=== PATIENT | female | born 1940 | race Caucasian/White ===

== ENCOUNTER 2020-12-27 12:33 | Inpatient (IN) ==
[2020-12-28] MEDS: Gabapentin 400 MG CAPSULE PO SCH (22:10)
[2020-12-28] MEDS: Mirtazapine 15 MG TABLET PO SCH (22:10)
[2020-12-29] MEDS: *HR* OxyCODONE/APAP 5/325 TABLET PO PRN (01:17)
[2020-12-29] MEDS: Cyanocobalamin (B-12) 1,000 MCG TABLET PO SCH (08:42)
[2020-12-29] MEDS: Multivit/Ca/Min/Fe/FA 1 TAB TABLET PO SCH (08:42)
[2020-12-29] MEDS: Cholecalciferol (D-3) 1,000 UNIT (25MCG) TABLET PO SCH (08:42)
[2020-12-29] MEDS: Metoprolol XL (24 HR) Succ 25 MG TAB.ER.24H PO SCH ×2 (08:43→20:09)
[2020-12-29] MEDS: Gabapentin 400 MG CAPSULE PO SCH ×4 (08:44→20:08)
[2020-12-29 10:27] LABS: Hematocrit 35.1 % (35.3-44.9); Hemoglobin 11.5 g/dL (11.5-15.4)
[2020-12-29] MEDS: Mirtazapine 15 MG TABLET PO SCH (20:09)
[2020-12-30] MEDS: Cyanocobalamin (B-12) 1,000 MCG TABLET PO SCH (08:05)
[2020-12-30] MEDS: Gabapentin 400 MG CAPSULE PO SCH ×4 (08:05→20:15)
[2020-12-30] MEDS: Cholecalciferol (D-3) 1,000 UNIT (25MCG) TABLET PO SCH (08:05)
[2020-12-30] MEDS: Multivit/Ca/Min/Fe/FA 1 TAB TABLET PO SCH (08:05)
[2020-12-30] MEDS: Metoprolol XL (24 HR) Succ 25 MG TAB.ER.24H PO SCH ×2 (08:06→20:15)
[2020-12-30] MEDS: Sennosides/Docusate Sodium TABLET PO SCH ×2 (09:42→20:15)
[2020-12-30] MEDS: Mirtazapine 15 MG TABLET PO SCH (20:15)
[2020-12-31] MEDS: Acetaminophen 325 MG TABLET PO PRN (05:51)
[2020-12-31] MEDS: Sennosides/Docusate Sodium TABLET PO SCH ×2 (08:17→19:46)
[2020-12-31] MEDS: Metoprolol XL (24 HR) Succ 25 MG TAB.ER.24H PO SCH ×2 (08:18→19:46)
[2020-12-31] MEDS: Gabapentin 400 MG CAPSULE PO SCH ×4 (08:19→19:46)
[2020-12-31] MEDS: Multivit/Ca/Min/Fe/FA 1 TAB TABLET PO SCH (08:19)
[2020-12-31] MEDS: Cyanocobalamin (B-12) 1,000 MCG TABLET PO SCH (08:20)
[2020-12-31] MEDS: Cholecalciferol (D-3) 1,000 UNIT (25MCG) TABLET PO SCH (08:20)
[2020-12-31] MEDS: Mirtazapine 15 MG TABLET PO SCH (19:47)
[2021-01-01] MEDS: Cholecalciferol (D-3) 1,000 UNIT (25MCG) TABLET PO SCH (10:09)
[2021-01-01] MEDS: Gabapentin 400 MG CAPSULE PO SCH ×4 (10:10→20:10)
[2021-01-01] MEDS: Cyanocobalamin (B-12) 1,000 MCG TABLET PO SCH (10:10)
[2021-01-01] MEDS: Multivit/Ca/Min/Fe/FA 1 TAB TABLET PO SCH (10:10)
[2021-01-01] MEDS: Metoprolol XL (24 HR) Succ 25 MG TAB.ER.24H PO SCH ×2 (10:10→20:09)
[2021-01-01] MEDS: Sennosides/Docusate Sodium TABLET PO SCH ×2 (10:11→20:09)
[2021-01-01] MEDS: Mirtazapine 15 MG TABLET PO SCH (20:09)
[2021-01-02] MEDS: Acetaminophen 325 MG TABLET PO PRN
[2021-01-02] MEDS: Metoprolol XL (24 HR) Succ 25 MG TAB.ER.24H PO SCH ×2 (08:38→20:13)
[2021-01-02] MEDS: Multivit/Ca/Min/Fe/FA 1 TAB TABLET PO SCH (08:38)
[2021-01-02] MEDS: Sennosides/Docusate Sodium TABLET PO SCH ×2 (08:38→20:13)
[2021-01-02] MEDS: Cyanocobalamin (B-12) 1,000 MCG TABLET PO SCH (08:38)
[2021-01-02] MEDS: Cholecalciferol (D-3) 1,000 UNIT (25MCG) TABLET PO SCH (08:38)
[2021-01-02] MEDS: Gabapentin 400 MG CAPSULE PO SCH ×4 (08:38→20:13)
[2021-01-02] MEDS: Mirtazapine 15 MG TABLET PO SCH (20:13)
[2021-01-02] MEDS: *HR* OxyCODONE/APAP 5/325 TABLET PO PRN (20:14)
[2021-01-03] MEDS: Gabapentin 400 MG CAPSULE PO SCH ×4 (08:48→20:17)
[2021-01-03] MEDS: Metoprolol XL (24 HR) Succ 25 MG TAB.ER.24H PO SCH ×2 (08:48→20:18)
[2021-01-03] MEDS: Cholecalciferol (D-3) 1,000 UNIT (25MCG) TABLET PO SCH (08:48)
[2021-01-03] MEDS: Cyanocobalamin (B-12) 1,000 MCG TABLET PO SCH (08:48)
[2021-01-03] MEDS: Multivit/Ca/Min/Fe/FA 1 TAB TABLET PO SCH (08:48)
[2021-01-03] MEDS: Sennosides/Docusate Sodium TABLET PO SCH ×2 (08:49→20:16)
[2021-01-03] MEDS: *HR* OxyCODONE/APAP 5/325 TABLET PO PRN (20:17)
[2021-01-03] MEDS: Mirtazapine 15 MG TABLET PO SCH (20:17)
[2021-01-04] MEDS: *HR* OxyCODONE/APAP 5/325 TABLET PO PRN ×2 (03:29→22:35)
[2021-01-04 07:16] LABS: Basophils # 0.1 K/mcL (0.0-0.2); Basophils % 0.6 %; Eosinophils # 0.2 K/mcL (0.0-0.6); Hematocrit 30.5 % (35.3-44.9); Hemoglobin 9.9 g/dL (11.5-15.4); Immature Granulocytes % 0.8 % (0-4); Lymphocytes # 1.7 K/mcL (0.6-4.6); Lymphocytes % 18.9 %; Mean Corpuscular HGB Conc 32.5 g/dL (31.6-35.5); Mean Corpuscular Hemoglobin 29.5 pg (28.0-33.3); Mean Corpuscular Volume 90.8 fL (83.0-100.0); Mean Platelet Volume 8.4 fL (9.4-12.4); Monocytes # 0.9 K/mcL (0.0-1.3); Platelet Count 505 K/mcL (140-400); Red Blood Count 3.36 M/mcL (3.82-4.97); Red Cell Distribution Width 12.2 % (11.5-14.5); Segmented Neutrophils % 67.7 %; White Blood Count 8.8 K/mcL (4.3-11.1)
[2021-01-04 07:31] LABS: BUN/Creatinine Ratio 28 (6-26); Blood Urea Nitrogen 22 mg/dL (8-23); Calcium 8.7 mg/dL (8.6-10.3); Carbon Dioxide 31 mEq/L (23-29); Chloride 98 mEq/L (98-107); Glucose 88 mg/dL (70-105); Osmolality,Calculated 281 (280-300); Potassium 4.1 mEq/L (3.5-5.1); Sodium 134 mEq/L (136-145); eGFR For African Americans > 60 (> 60); eGFR For Non-African Americans > 60 (> 60)
[2021-01-04] MEDS: Metoprolol XL (24 HR) Succ 25 MG TAB.ER.24H PO SCH ×2 (08:11→20:16)
[2021-01-04] MEDS: Cholecalciferol (D-3) 1,000 UNIT (25MCG) TABLET PO SCH (08:11)
[2021-01-04] MEDS: Multivit/Ca/Min/Fe/FA 1 TAB TABLET PO SCH (08:11)
[2021-01-04] MEDS: Sennosides/Docusate Sodium TABLET PO SCH ×2 (08:11→20:16)
[2021-01-04] MEDS: Cyanocobalamin (B-12) 1,000 MCG TABLET PO SCH (08:11)
[2021-01-04] MEDS: Gabapentin 400 MG CAPSULE PO SCH ×4 (08:11→20:16)
[2021-01-04] MEDS: Mirtazapine 15 MG TABLET PO SCH (20:16)
[2021-01-05] MEDS: Cyanocobalamin (B-12) 1,000 MCG TABLET PO SCH (08:31)
[2021-01-05] MEDS: Multivit/Ca/Min/Fe/FA 1 TAB TABLET PO SCH (08:31)
[2021-01-05] MEDS: Gabapentin 400 MG CAPSULE PO SCH ×4 (08:31→21:04)
[2021-01-05] MEDS: Metoprolol XL (24 HR) Succ 25 MG TAB.ER.24H PO SCH ×2 (08:31→21:04)
[2021-01-05] MEDS: Cholecalciferol (D-3) 1,000 UNIT (25MCG) TABLET PO SCH (08:31)
[2021-01-05] MEDS: Sennosides/Docusate Sodium TABLET PO SCH (08:31)
[2021-01-05] MEDS: Acetaminophen 325 MG TABLET PO PRN (09:59)
[2021-01-05] MEDS: Mirtazapine 15 MG TABLET PO SCH (21:04)
[2021-01-06] MEDS: Acetaminophen 325 MG TABLET PO PRN (04:19)
[2021-01-06] MEDS: Multivit/Ca/Min/Fe/FA 1 TAB TABLET PO SCH (08:54)
[2021-01-06] MEDS: Gabapentin 400 MG CAPSULE PO SCH ×4 (08:54→20:50)
[2021-01-06] MEDS: Cyanocobalamin (B-12) 1,000 MCG TABLET PO SCH (08:54)
[2021-01-06] MEDS: Metoprolol XL (24 HR) Succ 25 MG TAB.ER.24H PO SCH ×2 (08:54→20:50)
[2021-01-06] MEDS: Cholecalciferol (D-3) 1,000 UNIT (25MCG) TABLET PO SCH (08:54)
[2021-01-06 09:09] LABS: Basophils # 0.1 K/mcL (0.0-0.2); Basophils % 0.6 %; Eosinophils # 0.2 K/mcL (0.0-0.6); Eosinophils % 2.2 %; Hematocrit 28.6 % (35.3-44.9); Hemoglobin 9.4 g/dL (11.5-15.4); Immature Granulocytes % 0.7 % (0-4); Lymphocytes # 1.6 K/mcL (0.6-4.6); Lymphocytes % 17.5 %; Mean Corpuscular HGB Conc 32.9 g/dL (31.6-35.5); Mean Corpuscular Hemoglobin 29.7 pg (28.0-33.3); Mean Corpuscular Volume 90.5 fL (83.0-100.0); Mean Platelet Volume 8.5 fL (9.4-12.4); Monocytes # 0.8 K/mcL (0.0-1.3); Monocytes % 8.7 %; Neutrophils # 6.3 K/mcL (1.6-8.9); Platelet Count 553 K/mcL (140-400); Red Blood Count 3.16 M/mcL (3.82-4.97); Red Cell Distribution Width 12.2 % (11.5-14.5); Segmented Neutrophils % 70.3 %
[2021-01-06] MEDS: Mirtazapine 15 MG TABLET PO SCH (20:49)
[2021-01-07] MEDS: Multivit/Ca/Min/Fe/FA 1 TAB TABLET PO SCH (08:09)
[2021-01-07] MEDS: Cholecalciferol (D-3) 1,000 UNIT (25MCG) TABLET PO SCH (08:09)
[2021-01-07] MEDS: Gabapentin 400 MG CAPSULE PO SCH ×4 (08:09→20:06)
[2021-01-07] MEDS: Cyanocobalamin (B-12) 1,000 MCG TABLET PO SCH (08:09)
[2021-01-07] MEDS: Metoprolol XL (24 HR) Succ 25 MG TAB.ER.24H PO SCH ×2 (08:09→20:06)
[2021-01-07] MEDS: Mirtazapine 15 MG TABLET PO SCH (20:06)
[2021-01-08] MEDS: tiZANidine 4 MG TABLET PO PRN (00:40)
[2021-01-08] MEDS: *HR* OxyCODONE/APAP 5/325 TABLET PO PRN (00:40)
[2021-01-08 07:15] LABS: Basophils # 0.1 K/mcL (0.0-0.2); Basophils % 0.6 %; Eosinophils # 0.2 K/mcL (0.0-0.6); Eosinophils % 2.6 %; Hematocrit 31.5 % (35.3-44.9); Hemoglobin 10.7 g/dL (11.5-15.4); Immature Granulocytes % 0.5 % (0-4); Lymphocytes # 1.6 K/mcL (0.6-4.6); Lymphocytes % 19.9 %; Mean Corpuscular Hemoglobin 30.8 pg (28.0-33.3); Mean Corpuscular Volume 90.8 fL (83.0-100.0); Mean Platelet Volume 8.4 fL (9.4-12.4); Monocytes # 0.9 K/mcL (0.0-1.3); Monocytes % 10.4 %; Neutrophils # 5.4 K/mcL (1.6-8.9); Platelet Count 583 K/mcL (140-400); Red Blood Count 3.47 M/mcL (3.82-4.97); Red Cell Distribution Width 12.5 % (11.5-14.5); White Blood Count 8.2 K/mcL (4.3-11.1)
[2021-01-08 07:25] LABS: BUN/Creatinine Ratio 20 (6-26); Blood Urea Nitrogen 16 mg/dL (8-23); Calcium 8.9 mg/dL (8.6-10.3); Carbon Dioxide 32 mEq/L (23-29); Chloride 98 mEq/L (98-107); Glucose 81 mg/dL (70-105); Osmolality,Calculated 278 (280-300); Potassium 4.4 mEq/L (3.5-5.1); Sodium 134 mEq/L (136-145); eGFR For African Americans > 60 (> 60); eGFR For Non-African Americans > 60 (> 60)
[2021-01-08] MEDS: Cyanocobalamin (B-12) 1,000 MCG TABLET PO SCH (09:16)
[2021-01-08] MEDS: Gabapentin 400 MG CAPSULE PO SCH ×4 (09:16→20:54)
[2021-01-08] MEDS: Multivit/Ca/Min/Fe/FA 1 TAB TABLET PO SCH (09:16)
[2021-01-08] MEDS: Metoprolol XL (24 HR) Succ 25 MG TAB.ER.24H PO SCH ×2 (09:17→20:54)
[2021-01-08] MEDS: Cholecalciferol (D-3) 1,000 UNIT (25MCG) TABLET PO SCH (09:17)
[2021-01-08 09:25] LABS: % Iron Saturation 11 % (15-50); Iron 34 mcg/dL (50-170); Transferrin 220 mg/dL (203-362)
[2021-01-08 09:50] LABS: Folate 20.9 ng/mL (3.0-16.0)
[2021-01-08] MEDS: Mirtazapine 15 MG TABLET PO SCH (20:54)
[2021-01-09] MEDS: *HR* OxyCODONE/APAP 5/325 TABLET PO PRN ×3 (02:37→17:16)
[2021-01-09] MEDS: Cholecalciferol (D-3) 1,000 UNIT (25MCG) TABLET PO SCH (10:25)
[2021-01-09] MEDS: Cyanocobalamin (B-12) 1,000 MCG TABLET PO SCH (10:25)
[2021-01-09] MEDS: Metoprolol XL (24 HR) Succ 25 MG TAB.ER.24H PO SCH ×2 (10:25→21:35)
[2021-01-09] MEDS: Gabapentin 400 MG CAPSULE PO SCH ×4 (10:26→21:34)
[2021-01-09] MEDS: Multivit/Ca/Min/Fe/FA 1 TAB TABLET PO SCH (10:26)
[2021-01-09] MEDS: Mirtazapine 15 MG TABLET PO SCH (21:34)
[2021-01-09] MEDS: tiZANidine 4 MG TABLET PO PRN (21:34)
[2021-01-10] MEDS: *HR* OxyCODONE/APAP 5/325 TABLET PO PRN ×2 (01:22→09:18)
[2021-01-10] MEDS: Cholecalciferol (D-3) 1,000 UNIT (25MCG) TABLET PO SCH (09:19)
[2021-01-10] MEDS: Multivit/Ca/Min/Fe/FA 1 TAB TABLET PO SCH (09:19)
[2021-01-10] MEDS: Metoprolol XL (24 HR) Succ 25 MG TAB.ER.24H PO SCH ×2 (09:19→20:38)
[2021-01-10] MEDS: Cyanocobalamin (B-12) 1,000 MCG TABLET PO SCH (09:19)
[2021-01-10] MEDS: Gabapentin 400 MG CAPSULE PO SCH ×4 (09:20→20:36)
[2021-01-10] MEDS: *HR* Heparin 5,000 UNIT/ML VIAL SQ SCH (17:51)
[2021-01-10] MEDS: Acetaminophen 325 MG TABLET PO PRN (20:36)
[2021-01-10] MEDS: Mirtazapine 15 MG TABLET PO SCH (20:37)
[2021-01-11] MEDS: *HR* Heparin 5,000 UNIT/ML VIAL SQ SCH ×2 (06:43→17:14)
[2021-01-11 07:06] LABS: Basophils % 0.7 %; Eosinophils # 0.1 K/mcL (0.0-0.6); Eosinophils % 2.2 %; Hematocrit 33.9 % (35.3-44.9); Immature Granulocytes % 0.3 % (0-4); Lymphocytes # 1.6 K/mcL (0.6-4.6); Lymphocytes % 27.4 %; Mean Corpuscular HGB Conc 32.4 g/dL (31.6-35.5); Mean Corpuscular Hemoglobin 29.6 pg (28.0-33.3); Mean Corpuscular Volume 91.4 fL (83.0-100.0); Mean Platelet Volume 8.2 fL (9.4-12.4); Monocytes # 0.6 K/mcL (0.0-1.3); Monocytes % 9.9 %; Neutrophils # 3.5 K/mcL (1.6-8.9); Platelet Count 588 K/mcL (140-400); Red Blood Count 3.71 M/mcL (3.82-4.97); Red Cell Distribution Width 12.6 % (11.5-14.5); Segmented Neutrophils % 59.5 %; White Blood Count 5.9 K/mcL (4.3-11.1)
[2021-01-11] MEDS: Gabapentin 400 MG CAPSULE PO SCH ×4 (10:25→20:31)
[2021-01-11] MEDS: Cyanocobalamin (B-12) 1,000 MCG TABLET PO SCH (10:25)
[2021-01-11] MEDS: Multivit/Ca/Min/Fe/FA 1 TAB TABLET PO SCH (10:25)
[2021-01-11] MEDS: Cholecalciferol (D-3) 1,000 UNIT (25MCG) TABLET PO SCH (10:25)
[2021-01-11] MEDS: Metoprolol XL (24 HR) Succ 25 MG TAB.ER.24H PO SCH ×2 (10:25→20:32)
[2021-01-11] MEDS: Mirtazapine 15 MG TABLET PO SCH (20:31)
[2021-01-12] MEDS: *HR* Heparin 5,000 UNIT/ML VIAL SQ SCH ×2 (06:21→17:54)
[2021-01-12] MEDS: Metoprolol XL (24 HR) Succ 25 MG TAB.ER.24H PO SCH ×2 (10:10→20:04)
[2021-01-12] MEDS: Multivit/Ca/Min/Fe/FA 1 TAB TABLET PO SCH (10:10)
[2021-01-12] MEDS: Cholecalciferol (D-3) 1,000 UNIT (25MCG) TABLET PO SCH (10:10)
[2021-01-12] MEDS: Cyanocobalamin (B-12) 1,000 MCG TABLET PO SCH (10:10)
[2021-01-12] MEDS: Gabapentin 400 MG CAPSULE PO SCH ×4 (10:11→20:04)
[2021-01-12 19:59] VITALS: BP 118/69
[2021-01-12] MEDS: Mirtazapine 15 MG TABLET PO SCH (20:05)
== END 2021-01-12 20:15 | disposition home health service (06) | DRG 561 ==
LOC: INPPIK 12-28 19:24
PROVIDERS: ADMIT Family Medicine; ATTEND Family Medicine

== ENCOUNTER 2021-12-24 13:16 | Observation (INO) ==
[2021-12-24] MEDS ORDERED: Ondansetron 4 MG/2 ML VIAL IVP ONE (14:11)
[2021-12-24] MEDS ORDERED: 0.9 % Sodium Chloride 1,000 ML IVC ONE (14:11)
[2021-12-24 14:54] LABS: Basophils % 0.4 %; Hematocrit 40.1 % (35.3-44.9); Hemoglobin 13.3 g/dL (11.5-15.4); Immature Granulocytes % 0.4 % (0-4); Lymphocytes # 0.3 K/mcL (0.6-4.6); Lymphocytes % 3.3 %; Mean Corpuscular HGB Conc 33.2 g/dL (31.6-35.5); Mean Corpuscular Hemoglobin 30.4 pg (28.0-33.3); Mean Corpuscular Volume 91.8 fL (83.0-100.0); Mean Platelet Volume 9.2 fL (9.4-12.4); Monocytes # 0.5 K/mcL (0.0-1.3); Monocytes % 6.1 %; Neutrophils # 7.2 K/mcL (1.6-8.9); Platelet Count 272 K/mcL (140-400); Red Blood Count 4.37 M/mcL (3.82-4.97); Red Cell Distribution Width 12.3 % (11.5-14.5); Segmented Neutrophils % 89.8 %
[2021-12-24 15:12] LABS: Albumin 3.9 g/dL (3.5-5.7); Albumin/Globulin Ratio 1.3 (1.1-2.2); Bilirubin,Direct 0.1 mg/dL (0.0-0.2); Bilirubin,Indirect 0.2 mg/dL (0.0-1.0); Bilirubin,Total 0.3 mg/dL (0.3-1.0); Calcium 9.3 mg/dL (8.6-10.3); Potassium 4.1 mEq/L (3.5-5.1); Total Protein 6.9 g/dL (6.4-8.9)
[2021-12-24 15:17] LABS: Bilirubin,Urine Negative (Negative); Blood,Urine Negative (Negative); Clarity,Urine Clear (Clear); Color,Urine Yellow (Yellow); Glucose,Urine (UA) Normal (Normal); Ketones,Urine Trace mg/dL (Negative); Leukocyte Esterase,Urine Negative (Negative); Nitrite,Urine Negative (Negative); PH,Urine 5.5 pH Units (5.0-8.0); Protein,Urine 30 mg/dL (Neg-Trace); Specific Gravity,Urine 1.025 (1.010-1.025); Urobilinogen,Urine Normal (Normal)
[2021-12-24 15:28] LABS: Hyaline Casts,Urine Few per lpf (None Seen); WBC,Urine 0-3 per hpf (0-3)
[2021-12-24] MEDS ORDERED: Acetaminophen 325 MG TABLET PO PRN (17:15)
[2021-12-24] MEDS ORDERED: Ondansetron 4 MG/2 ML VIAL IVP PRN (17:15)
[2021-12-24] MEDS ORDERED: MOM Conc 10 ML UD.LIQ PO PRN (17:15)
[2021-12-24] MEDS ORDERED: Naloxone 0.4 MG/ML INJ IVP PRN (17:15)
[2021-12-24] MEDS ORDERED: Mag Hydrox/Al Hydrox/Simeth 30 ML UDC PO PRN (17:15)
[2021-12-24] MEDS: 0.9 % Sodium Chloride 1,000 ML IVC SCH (20:20)
[2021-12-24] MEDS: *HR* Heparin 5,000 UNIT/ML VIAL SQ SCH (20:22)
[2021-12-24] MEDS: Gabapentin 400 MG CAPSULE PO SCH (20:27)
[2021-12-25] MEDS: *HR* Heparin 5,000 UNIT/ML VIAL SQ SCH ×2 (06:15→17:13)
[2021-12-25 08:20] LABS: Hematocrit 36.9 % (35.3-44.9); Hemoglobin 12.3 g/dL (11.5-15.4); Mean Corpuscular HGB Conc 33.3 g/dL (31.6-35.5); Mean Corpuscular Hemoglobin 30.1 pg (28.0-33.3); Mean Corpuscular Volume 90.2 fL (83.0-100.0); Mean Platelet Volume 9.4 fL (9.4-12.4); Platelet Count 257 K/mcL (140-400); Red Blood Count 4.09 M/mcL (3.82-4.97); White Blood Count 7.5 K/mcL (4.3-11.1)
[2021-12-25 08:42] LABS: BUN/Creatinine Ratio 33 (6-26); Blood Urea Nitrogen 33 mg/dL (8-23); Calcium 8.3 mg/dL (8.6-10.3); Carbon Dioxide 22 mEq/L (23-29); Chloride 104 mEq/L (98-107); Glucose 96 mg/dL (70-105); Osmolality,Calculated 287 (280-300); Potassium 3.2 mEq/L (3.5-5.1); Sodium 135 mEq/L (136-145); eGFR For African Americans > 60 (> 60); eGFR For Non-African Americans 52 (> 60)
[2021-12-25] MEDS: Gabapentin 400 MG CAPSULE PO SCH ×4 (09:13→21:40)
[2021-12-25] MEDS: Multivit/Ca/Min/Fe/FA 1 TAB TABLET PO SCH (09:13)
[2021-12-25] MEDS: GALANTAMINE HBR 8 MG PO SCH (09:16)
[2021-12-25] MEDS: 0.9 % Sodium Chloride 1,000 ML IVC SCH ×2 (12:47→21:41)
[2021-12-25] MEDS: Mirtazapine 15 MG TABLET PO SCH (21:40)
[2021-12-26] MEDS: 0.9 % Sodium Chloride 1,000 ML IVC SCH ×2 (04:30→12:00)
[2021-12-26] MEDS: *HR* Heparin 5,000 UNIT/ML VIAL SQ SCH ×2 (05:20→17:06)
[2021-12-26 07:40] LABS: Hematocrit 36.8 % (35.3-44.9); Hemoglobin 12.6 g/dL (11.5-15.4); Mean Corpuscular HGB Conc 34.2 g/dL (31.6-35.5); Mean Corpuscular Hemoglobin 30.2 pg (28.0-33.3); Mean Corpuscular Volume 88.2 fL (83.0-100.0); Mean Platelet Volume 10.1 fL (9.4-12.4); Platelet Count 268 K/mcL (140-400); Red Blood Count 4.17 M/mcL (3.82-4.97); Red Cell Distribution Width 11.9 % (11.5-14.5); White Blood Count 8.5 K/mcL (4.3-11.1)
[2021-12-26 08:21] LABS: BUN/Creatinine Ratio 27 (6-26); Blood Urea Nitrogen 20 mg/dL (8-23); Calcium 8.4 mg/dL (8.6-10.3); Carbon Dioxide 25 mEq/L (23-29); Chloride 105 mEq/L (98-107); Glucose 96 mg/dL (70-105); Osmolality,Calculated 288 (280-300); Potassium 3.2 mEq/L (3.5-5.1); Sodium 138 mEq/L (136-145); eGFR For African Americans > 60 (> 60); eGFR For Non-African Americans > 60 (> 60)
[2021-12-26] MEDS: Multivit/Ca/Min/Fe/FA 1 TAB TABLET PO SCH (10:04)
[2021-12-26] MEDS: Gabapentin 400 MG CAPSULE PO SCH ×4 (10:04→21:25)
[2021-12-26] MEDS: GALANTAMINE HBR 8 MG PO SCH (10:05)
[2021-12-26] MEDS: Mirtazapine 15 MG TABLET PO SCH (21:25)
[2021-12-27] MEDS: 0.9 % Sodium Chloride 1,000 ML IVC SCH ×2 (01:18→12:58)
[2021-12-27] MEDS: *HR* Heparin 5,000 UNIT/ML VIAL SQ SCH ×2 (06:53→20:05)
[2021-12-27] MEDS: Multivit/Ca/Min/Fe/FA 1 TAB TABLET PO SCH (08:27)
[2021-12-27] MEDS: Gabapentin 400 MG CAPSULE PO SCH ×3 (08:28→20:01)
[2021-12-27] MEDS: GALANTAMINE HBR 8 MG PO SCH (08:28)
[2021-12-27 08:45] LABS: BUN/Creatinine Ratio 19 (6-26); Blood Urea Nitrogen 14 mg/dL (8-23); Calcium 8.4 mg/dL (8.6-10.3); Carbon Dioxide 23 mEq/L (23-29); Chloride 108 mEq/L (98-107); Glucose 93 mg/dL (70-105); Magnesium 1.6 mg/dL (1.6-2.6); Osmolality,Calculated 286 (280-300); Potassium 3.4 mEq/L (3.5-5.1); Sodium 138 mEq/L (136-145); eGFR For African Americans > 60 (> 60); eGFR For Non-African Americans > 60 (> 60)
[2021-12-27] MEDS: Mirtazapine 15 MG TABLET PO SCH (20:00)
[2021-12-28] MEDS: 0.9 % Sodium Chloride 1,000 ML IVC SCH ×4 (02:04→12:50)
[2021-12-28] MEDS: *HR* Heparin 5,000 UNIT/ML VIAL SQ SCH (06:23)
[2021-12-28] MEDS: GALANTAMINE HBR 8 MG PO SCH (10:03)
[2021-12-28] MEDS: Multivit/Ca/Min/Fe/FA 1 TAB TABLET PO SCH (10:03)
[2021-12-28] MEDS: Gabapentin 400 MG CAPSULE PO SCH ×2 (10:03→12:49)
[2021-12-28 11:18] VITALS: BP 167/74; PULSE 82; RESP 16; TEMP 98.2; O2SAT 96
== END 2021-12-28 15:05 | disposition other institution (70) ==
LOC: INPPIK 13:16 → EMEROOPIK 13:16 → INPPIK 17:27
PROVIDERS: ADMIT Registered Nurse Emergency; ATTEND Registered Nurse Emergency

== ENCOUNTER 2021-12-27 17:43 | Inpatient (IN) ==
[2021-12-28] MEDS ORDERED: Acetaminophen 325 MG TABLET PO PRN (15:39)
[2021-12-28] MEDS: Gabapentin 400 MG CAPSULE PO SCH ×2 (17:34→23:12)
[2021-12-28] MEDS: *HR* Heparin 5,000 UNIT/ML VIAL SQ SCH (17:34)
[2021-12-28] MEDS: Mirtazapine 15 MG TABLET PO SCH (23:11)
[2021-12-29 06:36] LABS: Basophils % 0.4 %; Eosinophils # 0.1 K/mcL (0.0-0.6); Eosinophils % 1.1 %; Hematocrit 33.6 % (35.3-44.9); Hemoglobin 11.4 g/dL (11.5-15.4); Immature Granulocytes % 0.3 % (0-4); Lymphocytes # 1.8 K/mcL (0.6-4.6); Lymphocytes % 21.9 %; Mean Corpuscular HGB Conc 33.9 g/dL (31.6-35.5); Mean Corpuscular Hemoglobin 30.3 pg (28.0-33.3); Mean Corpuscular Volume 89.4 fL (83.0-100.0); Mean Platelet Volume 9.7 fL (9.4-12.4); Monocytes # 0.9 K/mcL (0.0-1.3); Monocytes % 11.8 %; Neutrophils # 5.2 K/mcL (1.6-8.9); Platelet Count 267 K/mcL (140-400); Red Blood Count 3.76 M/mcL (3.82-4.97); Red Cell Distribution Width 12.3 % (11.5-14.5); Segmented Neutrophils % 64.5 %
[2021-12-29] MEDS: *HR* Heparin 5,000 UNIT/ML VIAL SQ SCH ×2 (06:52→17:31)
[2021-12-29 07:05] LABS: BUN/Creatinine Ratio 17 (6-26); Blood Urea Nitrogen 13 mg/dL (8-23); Calcium 8.5 mg/dL (8.6-10.3); Carbon Dioxide 27 mEq/L (23-29); Chloride 107 mEq/L (98-107); Glucose 99 mg/dL (70-105); Osmolality,Calculated 290 (280-300); Sodium 140 mEq/L (136-145); eGFR For African Americans > 60 (> 60); eGFR For Non-African Americans > 60 (> 60)
[2021-12-29] MEDS: GALANTAMINE HBR 8 MG PO SCH (07:51)
[2021-12-29] MEDS: Gabapentin 400 MG CAPSULE PO SCH ×4 (07:51→19:38)
[2021-12-29] MEDS: Multivit/Ca/Min/Fe/FA 1 TAB TABLET PO SCH (08:30)
[2021-12-29] MEDS: Cyanocobalamin (B-12) 1,000 MCG TABLET PO SCH (08:30)
[2021-12-29] MEDS: lisinopriL 20 MG TABLET PO SCH (08:30)
[2021-12-29] MEDS: (Mirabegron [Myrbetriq] 25 MG Tab.Er.24h) PO SCH (08:31)
[2021-12-29] MEDS: Cholecalciferol (D-3) 1,000 UNIT (25MCG) TABLET PO SCH (08:31)
[2021-12-29] MEDS ORDERED: hydrALAZINE 25 MG TABLET PO PRN (12:27)
[2021-12-29] MEDS: Mirtazapine 15 MG TABLET PO SCH (19:38)
[2021-12-30] MEDS: *HR* Heparin 5,000 UNIT/ML VIAL SQ SCH ×2 (06:34→18:27)
[2021-12-30] MEDS: Gabapentin 400 MG CAPSULE PO SCH ×4 (10:58→20:54)
[2021-12-30] MEDS: Cholecalciferol (D-3) 1,000 UNIT (25MCG) TABLET PO SCH (10:58)
[2021-12-30] MEDS: lisinopriL 20 MG TABLET PO SCH (10:58)
[2021-12-30] MEDS: Cyanocobalamin (B-12) 1,000 MCG TABLET PO SCH (10:58)
[2021-12-30] MEDS: Multivit/Ca/Min/Fe/FA 1 TAB TABLET PO SCH (10:58)
[2021-12-30] MEDS: (Mirabegron [Myrbetriq] 25 MG Tab.Er.24h) PO SCH (11:02)
[2021-12-30] MEDS: GALANTAMINE HBR 8 MG PO SCH (11:02)
[2021-12-30] MEDS: Mirtazapine 15 MG TABLET PO SCH (20:54)
[2021-12-31] MEDS: *HR* Heparin 5,000 UNIT/ML VIAL SQ SCH ×2 (05:55→17:14)
[2021-12-31] MEDS: Cholecalciferol (D-3) 1,000 UNIT (25MCG) TABLET PO SCH (07:17)
[2021-12-31] MEDS: lisinopriL 20 MG TABLET PO SCH (07:17)
[2021-12-31] MEDS: (Mirabegron [Myrbetriq] 25 MG Tab.Er.24h) PO SCH (07:17)
[2021-12-31] MEDS: Cyanocobalamin (B-12) 1,000 MCG TABLET PO SCH (07:17)
[2021-12-31] MEDS: GALANTAMINE HBR 8 MG PO SCH (07:17)
[2021-12-31] MEDS: Gabapentin 400 MG CAPSULE PO SCH ×4 (07:17→19:54)
[2021-12-31] MEDS: Multivit/Ca/Min/Fe/FA 1 TAB TABLET PO SCH (07:17)
[2021-12-31] MEDS: Mirtazapine 15 MG TABLET PO SCH (19:54)
[2022-01-01] MEDS: *HR* Heparin 5,000 UNIT/ML VIAL SQ SCH ×2 (05:10→17:34)
[2022-01-01] MEDS: Cholecalciferol (D-3) 1,000 UNIT (25MCG) TABLET PO SCH (08:19)
[2022-01-01] MEDS: Gabapentin 400 MG CAPSULE PO SCH ×4 (08:19→20:16)
[2022-01-01] MEDS: Cyanocobalamin (B-12) 1,000 MCG TABLET PO SCH (08:19)
[2022-01-01] MEDS: lisinopriL 20 MG TABLET PO SCH (08:19)
[2022-01-01] MEDS: Multivit/Ca/Min/Fe/FA 1 TAB TABLET PO SCH (08:19)
[2022-01-01] MEDS: (Mirabegron [Myrbetriq] 25 MG Tab.Er.24h) PO SCH (08:20)
[2022-01-01] MEDS: GALANTAMINE HBR 8 MG PO SCH (08:20)
[2022-01-01] MEDS: Mirtazapine 15 MG TABLET PO SCH (20:16)
[2022-01-02] MEDS: *HR* Heparin 5,000 UNIT/ML VIAL SQ SCH ×2 (05:41→17:09)
[2022-01-02] MEDS: (Mirabegron [Myrbetriq] 25 MG Tab.Er.24h) PO SCH (12:17)
[2022-01-02] MEDS: GALANTAMINE HBR 8 MG PO SCH (12:17)
[2022-01-02] MEDS: Gabapentin 400 MG CAPSULE PO SCH ×4 (12:17→22:04)
[2022-01-02] MEDS: Multivit/Ca/Min/Fe/FA 1 TAB TABLET PO SCH (12:58)
[2022-01-02] MEDS: Cholecalciferol (D-3) 1,000 UNIT (25MCG) TABLET PO SCH (12:58)
[2022-01-02] MEDS: lisinopriL 20 MG TABLET PO SCH (12:58)
[2022-01-02] MEDS: Cyanocobalamin (B-12) 1,000 MCG TABLET PO SCH (12:58)
[2022-01-02] MEDS: Mirtazapine 15 MG TABLET PO SCH (22:04)
[2022-01-03] MEDS: *HR* Heparin 5,000 UNIT/ML VIAL SQ SCH ×2 (06:21→16:59)
[2022-01-03 08:37] LABS: Hematocrit 33.2 % (35.3-44.9); Hemoglobin 10.8 g/dL (11.5-15.4); Mean Corpuscular HGB Conc 32.5 g/dL (31.6-35.5); Mean Corpuscular Hemoglobin 30.3 pg (28.0-33.3); Platelet Count 392 K/mcL (140-400); Red Blood Count 3.57 M/mcL (3.82-4.97); Red Cell Distribution Width 12.2 % (11.5-14.5); White Blood Count 10.2 K/mcL (4.3-11.1)
[2022-01-03 08:46] LABS: BUN/Creatinine Ratio 23 (6-26); Blood Urea Nitrogen 23 mg/dL (8-23); Carbon Dioxide 33 mEq/L (23-29); Chloride 101 mEq/L (98-107); Glucose 91 mg/dL (70-105); Osmolality,Calculated 289 (280-300); Potassium 4.3 mEq/L (3.5-5.1); Sodium 138 mEq/L (136-145); eGFR For African Americans > 60 (> 60); eGFR For Non-African Americans 52 (> 60)
[2022-01-03] MEDS: (Mirabegron [Myrbetriq] 25 MG Tab.Er.24h) PO SCH (10:18)
[2022-01-03] MEDS: GALANTAMINE HBR 8 MG PO SCH (10:18)
[2022-01-03] MEDS: lisinopriL 20 MG TABLET PO SCH (10:21)
[2022-01-03] MEDS: Multivit/Ca/Min/Fe/FA 1 TAB TABLET PO SCH (10:21)
[2022-01-03] MEDS: Cholecalciferol (D-3) 1,000 UNIT (25MCG) TABLET PO SCH (10:21)
[2022-01-03] MEDS: Cyanocobalamin (B-12) 1,000 MCG TABLET PO SCH (10:21)
[2022-01-03] MEDS: Gabapentin 400 MG CAPSULE PO SCH ×4 (10:21→21:22)
[2022-01-03] MEDS: Mirtazapine 15 MG TABLET PO SCH (21:22)
[2022-01-04] MEDS: *HR* Heparin 5,000 UNIT/ML VIAL SQ SCH ×2 (05:06→16:29)
[2022-01-04] MEDS: (Mirabegron [Myrbetriq] 25 MG Tab.Er.24h) PO SCH (08:22)
[2022-01-04] MEDS: Cholecalciferol (D-3) 1,000 UNIT (25MCG) TABLET PO SCH (08:22)
[2022-01-04] MEDS: Multivit/Ca/Min/Fe/FA 1 TAB TABLET PO SCH (08:22)
[2022-01-04] MEDS: Gabapentin 400 MG CAPSULE PO SCH ×4 (08:22→19:47)
[2022-01-04] MEDS: Cyanocobalamin (B-12) 1,000 MCG TABLET PO SCH (08:22)
[2022-01-04] MEDS: GALANTAMINE HBR 8 MG PO SCH (08:22)
[2022-01-04] MEDS: lisinopriL 20 MG TABLET PO SCH (08:22)
[2022-01-04] MEDS: Mirtazapine 15 MG TABLET PO SCH (19:47)
[2022-01-05] MEDS: *HR* Heparin 5,000 UNIT/ML VIAL SQ SCH ×2 (05:35→18:12)
[2022-01-05] MEDS: Multivit/Ca/Min/Fe/FA 1 TAB TABLET PO SCH (11:05)
[2022-01-05] MEDS: Cholecalciferol (D-3) 1,000 UNIT (25MCG) TABLET PO SCH (11:07)
[2022-01-05] MEDS: lisinopriL 20 MG TABLET PO SCH (11:07)
[2022-01-05] MEDS: Gabapentin 400 MG CAPSULE PO SCH ×4 (11:07→21:03)
[2022-01-05] MEDS: Cyanocobalamin (B-12) 1,000 MCG TABLET PO SCH (11:07)
[2022-01-05] MEDS: GALANTAMINE HBR 8 MG PO SCH (11:08)
[2022-01-05] MEDS: (Mirabegron [Myrbetriq] 25 MG Tab.Er.24h) PO SCH (11:08)
[2022-01-05] MEDS: Mirtazapine 15 MG TABLET PO SCH (21:03)
[2022-01-06] MEDS: *HR* Heparin 5,000 UNIT/ML VIAL SQ SCH ×2 (05:34→17:42)
[2022-01-06] MEDS: (Mirabegron [Myrbetriq] 25 MG Tab.Er.24h) PO SCH (08:36)
[2022-01-06] MEDS: lisinopriL 20 MG TABLET PO SCH (08:36)
[2022-01-06] MEDS: Gabapentin 400 MG CAPSULE PO SCH ×4 (08:36→21:29)
[2022-01-06] MEDS: Multivit/Ca/Min/Fe/FA 1 TAB TABLET PO SCH (08:36)
[2022-01-06] MEDS: Cholecalciferol (D-3) 1,000 UNIT (25MCG) TABLET PO SCH (08:36)
[2022-01-06] MEDS: Cyanocobalamin (B-12) 1,000 MCG TABLET PO SCH (08:36)
[2022-01-06] MEDS: GALANTAMINE HBR 8 MG PO SCH (08:37)
[2022-01-06] MEDS: Mirtazapine 15 MG TABLET PO SCH (21:29)
[2022-01-07] MEDS: *HR* Heparin 5,000 UNIT/ML VIAL SQ SCH ×2 (06:47→18:19)
[2022-01-07] MEDS: GALANTAMINE HBR 8 MG PO SCH (09:05)
[2022-01-07] MEDS: (Mirabegron [Myrbetriq] 25 MG Tab.Er.24h) PO SCH (09:05)
[2022-01-07] MEDS: Multivit/Ca/Min/Fe/FA 1 TAB TABLET PO SCH (09:05)
[2022-01-07] MEDS: Cholecalciferol (D-3) 1,000 UNIT (25MCG) TABLET PO SCH (09:05)
[2022-01-07] MEDS: Gabapentin 400 MG CAPSULE PO SCH ×4 (09:05→20:57)
[2022-01-07] MEDS: Cyanocobalamin (B-12) 1,000 MCG TABLET PO SCH (09:05)
[2022-01-07] MEDS: lisinopriL 20 MG TABLET PO SCH (09:05)
[2022-01-07 18:52] VITALS: TEMP 97.8
[2022-01-07] MEDS: Mirtazapine 15 MG TABLET PO SCH (20:57)
[2022-01-08 08:26] VITALS: BP 137/78; PULSE 71; RESP 17; O2SAT 93
[2022-01-08] MEDS: Multivit/Ca/Min/Fe/FA 1 TAB TABLET PO SCH (08:53)
[2022-01-08] MEDS: lisinopriL 20 MG TABLET PO SCH (08:53)
[2022-01-08] MEDS: *HR* Heparin 5,000 UNIT/ML VIAL SQ SCH (08:54)
[2022-01-08] MEDS: Cholecalciferol (D-3) 1,000 UNIT (25MCG) TABLET PO SCH (08:54)
[2022-01-08] MEDS: Gabapentin 400 MG CAPSULE PO SCH ×2 (08:54→13:04)
[2022-01-08] MEDS: Cyanocobalamin (B-12) 1,000 MCG TABLET PO SCH (08:54)
[2022-01-08] MEDS: (Mirabegron [Myrbetriq] 25 MG Tab.Er.24h) PO SCH (08:55)
[2022-01-08] MEDS: GALANTAMINE HBR 8 MG PO SCH (08:55)
== END 2022-01-08 15:43 | disposition home or self-care (01) | DRG 57 ==
LOC: INPPIK 12-28 15:07
PROVIDERS: ADMIT Family Medicine; ATTEND Family Medicine

== ENCOUNTER 2022-08-06 14:10 | Inpatient (IN) ==
[2022-08-06] MEDS ORDERED: 0.9 % Sodium Chloride 1,000 ML IVC ONE (14:28)
[2022-08-06] MEDS ORDERED: 0.9 % Sodium Chloride 1,000 ML IVC SCH (14:30)
[2022-08-06 14:57] LABS: Basophils % 0.3 %; Hematocrit 36.1 % (35.3-44.9); Hemoglobin 12.1 g/dL (11.5-15.4); Immature Granulocytes % 0.2 % (0-4); Lymphocytes % 10.8 %; Mean Corpuscular HGB Conc 33.5 g/dL (31.6-35.5); Mean Corpuscular Hemoglobin 27.9 pg (28.0-33.3); Mean Corpuscular Volume 83.4 fL (83.0-100.0); Mean Platelet Volume 8.5 fL (9.4-12.4); Monocytes # 1.1 K/mcL (0.0-1.3); Monocytes % 11.9 %; Neutrophils # 7.3 K/mcL (1.6-8.9); Platelet Count 365 K/mcL (140-400); Red Blood Count 4.33 M/mcL (3.82-4.97); Red Cell Distribution Width 13.1 % (11.5-14.5); Segmented Neutrophils % 76.8 %; White Blood Count 9.5 K/mcL (4.3-11.1)
[2022-08-06 15:17] LABS: INR 1.2; Prothrombin Time 13.2 Seconds (9.4-12.1)
[2022-08-06 15:18] LABS: Alanine Aminotransferase 12 Units/L (7-52); Albumin 3.4 g/dL (3.5-5.7); Alkaline Phosphatase 63 Units/L (34-104); Aspartate Amino Transferase 23 Units/L (13-39); BUN/Creatinine Ratio 21 (6-26); Bilirubin,Indirect 0.3 mg/dL (0.0-1.0); Bilirubin,Total 0.3 mg/dL (0.3-1.0); Blood Urea Nitrogen 18 mg/dL (8-23); Calcium 9.1 mg/dL (8.6-10.3); Carbon Dioxide 26 mEq/L (23-29); Chloride 97 mEq/L (98-107); Creatine Kinase 111 Units/L (30-223); Ethanol < 10 mg/dL (Less than 10); Globulin 3.5 g/dL (2.4-3.5); Glucose 106 mg/dL (70-105); Osmolality,Calculated 276 (280-300); Potassium 4.1 mEq/L (3.5-5.1); Sodium 132 mEq/L (136-145); Total Protein 6.9 g/dL (6.4-8.9)
[2022-08-06 15:45] LABS: Bilirubin,Urine Negative (Negative); Blood,Urine Negative (Negative); Clarity,Urine Slightly Cloudy (Clear); Color,Urine Yellow (Yellow); Glucose,Urine (UA) Normal (Normal); Ketones,Urine Negative (Negative); Leukocyte Esterase,Urine Small (Negative); Nitrite,Urine Negative (Negative); Protein,Urine Trace mg/dL (Neg-Trace); Specific Gravity,Urine 1.025 (1.010-1.025); Urobilinogen,Urine Normal (Normal)
[2022-08-06 15:53] LABS: Bacteria,Urine Many per hpf (None-Few)
[2022-08-06 15:57] LABS: RBC,Urine 0-3 per hpf (0-3); WBC,Urine 15-30 per hpf (0-3)
[2022-08-06] MEDS ORDERED: cefTRIAXone 2,000 MG in 0.9 % Sodium Chloride Mini Bag 100 ML IVPB ONE (16:17)
[2022-08-06 16:31] LABS: Troponin I <= 0.04 ng/mL (0-0.04)
[2022-08-06] MEDS ORDERED: Naloxone 0.4 MG/ML INJ IVP PRN ×2 (17:13→17:15)
[2022-08-06] MEDS ORDERED: Ondansetron ODT 4 MG TAB.RAPDIS SL PRN (17:13)
[2022-08-06] MEDS ORDERED: Acetaminophen 325 MG TABLET PO PRN (17:30)
[2022-08-06 18:01] LABS: Thyroid Stimulating Hormone 1.567 mcIU/mL (0.340-5.600)
[2022-08-06] MEDS ORDERED: Furosemide 20 MG/2 ML VIAL IVP ONE ×2 (18:43→23:50)
[2022-08-06] MEDS: Gabapentin 400 MG CAPSULE PO SCH (18:56)
[2022-08-06] MEDS: Budesonide/Formoterol 160/4.5 1 PUFF INH IH SCH (20:38)
[2022-08-07] MEDS: *HR* Enoxaparin 40 MG/0.4 ML SYRINGE SQ SCH (05:26)
[2022-08-07 07:35] LABS: Albumin 3.3 g/dL (3.5-5.7); Albumin/Globulin Ratio 0.9 (1.1-2.2); Bilirubin,Total 0.3 mg/dL (0.3-1.0); Calcium 8.8 mg/dL (8.6-10.3); Globulin 3.7 g/dL (2.4-3.5); Magnesium 1.5 mg/dL (1.6-2.6); Potassium 3.7 mEq/L (3.5-5.1)
[2022-08-07] MEDS ORDERED: Ipratropium 1 PUFF INHALER IH SCH ×2 (08:00→10:00)
[2022-08-07] MEDS: Budesonide/Formoterol 160/4.5 1 PUFF INH IH SCH ×2 (09:11→21:00)
[2022-08-07] MEDS: Cyanocobalamin (B-12) 1,000 MCG TABLET PO SCH (09:55)
[2022-08-07] MEDS: Multivit/Ca/Min/Fe/FA 1 TAB TABLET PO SCH (09:55)
[2022-08-07] MEDS: GALANTAMINE HBR 8 MG PO SCH (09:55)
[2022-08-07] MEDS: Megestrol Acetate 400 MG/10 ML UDC PO SCH (09:55)
[2022-08-07] MEDS: Cefdinir 300 MG CAPSULE PO SCH ×2 (09:55→22:03)
[2022-08-07] MEDS: Gabapentin 400 MG CAPSULE PO SCH ×2 (09:55→13:59)
[2022-08-07] MEDS: (Mirabegron [Myrbetriq] 25 MG Tab.Er.24h) PO SCH (09:55)
[2022-08-07] MEDS: lisinopriL 20 MG TABLET PO SCH (09:56)
[2022-08-07] MEDS: Cholecalciferol (D-3) 1,000 UNIT (25MCG) TABLET PO SCH (09:56)
[2022-08-07] MEDS: Furosemide 20 MG/2 ML VIAL IVP SCH ×2 (10:37→21:38)
[2022-08-07 10:39] LABS: Basophils % 0.2 %; Eosinophils % 0.1 %; Hematocrit 37.7 % (35.3-44.9); Hemoglobin 12.7 g/dL (11.5-15.4); Immature Granulocytes % 0.4 % (0-4); Lymphocytes # 1.1 K/mcL (0.6-4.6); Lymphocytes % 8.1 %; Mean Corpuscular HGB Conc 33.7 g/dL (31.6-35.5); Mean Corpuscular Hemoglobin 28.2 pg (28.0-33.3); Mean Corpuscular Volume 83.6 fL (83.0-100.0); Monocytes # 1.2 K/mcL (0.0-1.3); Monocytes % 9.3 %; Neutrophils # 10.7 K/mcL (1.6-8.9); Platelet Count 379 K/mcL (140-400); Red Blood Count 4.51 M/mcL (3.82-4.97); Red Cell Distribution Width 13.2 % (11.5-14.5); Segmented Neutrophils % 81.9 %
[2022-08-07] MEDS ORDERED: Remdesivir 200 MG in 0.9 % Sodium Chloride 100 ML IVPB ONE (11:06)
[2022-08-07] MEDS ORDERED: Furosemide 20 MG/2 ML VIAL IVP ONE (14:01)
[2022-08-07] MEDS ORDERED: Albumin 25% 25gram/100mL 25 GM/100 ML IV.SOLN IVPB ONE (19:43)
[2022-08-07] MEDS ORDERED: *HR* Metoprolol 5 MG/5 ML VIAL IVP ONE (19:46)
[2022-08-07] MEDS: Mirtazapine 15 MG TABLET PO SCH (22:03)
[2022-08-08] MEDS: *HR* Enoxaparin 40 MG/0.4 ML SYRINGE SQ SCH (06:01)
[2022-08-08 08:43] LABS: Albumin 3.6 g/dL (3.5-5.7); Bilirubin,Direct 0.1 mg/dL (0.0-0.2); Bilirubin,Indirect 0.3 mg/dL (0.0-1.0); Bilirubin,Total 0.4 mg/dL (0.3-1.0); Globulin 3.6 g/dL (2.4-3.5); Total Protein 7.2 g/dL (6.4-8.9)
[2022-08-08] MEDS: Budesonide/Formoterol 160/4.5 1 PUFF INH IH SCH ×2 (09:00→19:41)
[2022-08-08] MEDS: (Mirabegron [Myrbetriq] 25 MG Tab.Er.24h) PO SCH (09:25)
[2022-08-08] MEDS: GALANTAMINE HBR 8 MG PO SCH (09:25)
[2022-08-08] MEDS: Megestrol Acetate 400 MG/10 ML UDC PO SCH (10:02)
[2022-08-08] MEDS: Cyanocobalamin (B-12) 1,000 MCG TABLET PO SCH (10:02)
[2022-08-08] MEDS: Multivit/Ca/Min/Fe/FA 1 TAB TABLET PO SCH (10:02)
[2022-08-08] MEDS: Cholecalciferol (D-3) 1,000 UNIT (25MCG) TABLET PO SCH (10:03)
[2022-08-08] MEDS: lisinopriL 20 MG TABLET PO SCH (10:03)
[2022-08-08] MEDS: Azithromycin 250 MG TABLET PO SCH (10:03)
[2022-08-08] MEDS: Cefdinir 300 MG CAPSULE PO SCH ×2 (10:03→21:49)
[2022-08-08] MEDS: Remdesivir 100 MG in 0.9 % Sodium Chloride 100 ML IVPB SCH (11:26)
[2022-08-08] MEDS: Furosemide 20 MG/2 ML VIAL IVP SCH (11:54)
[2022-08-08 19:44] LABS: A.calcoaceticus-baumannii cplx Not Detected (Not Detect); Bacteroides fragilis by PCR Not Detected (Not Detect); Enterobacter cloacae Cmplx PCR Not Detected (Not Detect); Enterobacterales by PCR Not Detected (Not Detect); Enterococcus faecalis by PCR Not Detected (Not Detect); Enterococcus faecium by PCR Not Detected (Not Detect); Escherichia coli by PCR Not Detected (Not Detect); Klebs. pneumoniae group by PCR Not Detected (Not Detect); Klebsiella aerogenes by PCR Not Detected (Not Detect); Klebsiella oxytoca by PCR Not Detected (Not Detect); Staph epidermidis by PCR Not Detected (Not Detect); Staph lugdunensis by PCR Not Detected (Not Detect); Staphylococcus aureus by PCR Not Detected (Not Detect); Staphylococcus by PCR Not Detected (Not Detect); Streptococcus agalactiae(B)PCR Not Detected (Not Detect); Streptococcus by PCR Not Detected (Not Detect); Streptococcus pneumoniae PCR Not Detected (Not Detect); Streptococcus pyogenes (A) PCR Not Detected (Not Detect)
[2022-08-08 19:45] LABS: Candida albicans by PCR Not Detected (Not Detect); Candida auris by PCR Not Detected (Not Detect); Candida glabrata by PCR Not Detected (Not Detect); Candida krusei by PCR Not Detected (Not Detect); Candida parapsilosis by PCR Not Detected (Not Detect); Candida tropicalis by PCR Not Detected (Not Detect); Crypto. neoformans/gattii PCR Not Detected (Not Detect); Proteus by PCR Not Detected (Not Detect); Pseudomonas aeruginosa by PCR Not Detected (Not Detect); Salmonella species by PCR Not Detected (Not Detect); Serratia marcescens by PCR Not Detected (Not Detect); Stenotrophomonas maltophilia Not Detected (Not Detect)
[2022-08-08] MEDS: Mirtazapine 15 MG TABLET PO SCH (21:49)
[2022-08-09] MEDS: *HR* Enoxaparin 40 MG/0.4 ML SYRINGE SQ SCH (06:53)
[2022-08-09 06:57] LABS: Basophils % 0.1 %; Hematocrit 39.2 % (35.3-44.9); Hemoglobin 13.2 g/dL (11.5-15.4); Immature Granulocytes % 0.4 % (0-4); Lymphocytes # 0.9 K/mcL (0.6-4.6); Lymphocytes % 6.5 %; Mean Corpuscular HGB Conc 33.7 g/dL (31.6-35.5); Mean Corpuscular Volume 83.2 fL (83.0-100.0); Mean Platelet Volume 8.6 fL (9.4-12.4); Monocytes # 0.7 K/mcL (0.0-1.3); Monocytes % 5.2 %; Neutrophils # 12.1 K/mcL (1.6-8.9); Platelet Count 385 K/mcL (140-400); Red Blood Count 4.71 M/mcL (3.82-4.97); Red Cell Distribution Width 13.1 % (11.5-14.5); Segmented Neutrophils % 87.8 %; White Blood Count 13.8 K/mcL (4.3-11.1)
[2022-08-09 07:12] LABS: Calcium 9.3 mg/dL (8.6-10.3); Magnesium 2.3 mg/dL (1.6-2.6); Potassium 3.9 mEq/L (3.5-5.1)
[2022-08-09 07:13] LABS: Albumin 3.5 g/dL (3.5-5.7); Bilirubin,Direct 0.1 mg/dL (0.0-0.2); Bilirubin,Indirect 0.2 mg/dL (0.0-1.0); Bilirubin,Total 0.3 mg/dL (0.3-1.0); Globulin 3.5 g/dL (2.4-3.5)
[2022-08-09] MEDS: Budesonide/Formoterol 160/4.5 1 PUFF INH IH SCH ×2 (07:42→20:59)
[2022-08-09] MEDS: Multivit/Ca/Min/Fe/FA 1 TAB TABLET PO SCH (08:45)
[2022-08-09] MEDS: lisinopriL 20 MG TABLET PO SCH (08:45)
[2022-08-09] MEDS: Cyanocobalamin (B-12) 1,000 MCG TABLET PO SCH (08:45)
[2022-08-09] MEDS: Megestrol Acetate 400 MG/10 ML UDC PO SCH (08:45)
[2022-08-09] MEDS: Cholecalciferol (D-3) 1,000 UNIT (25MCG) TABLET PO SCH (08:45)
[2022-08-09] MEDS: (Mirabegron [Myrbetriq] 25 MG Tab.Er.24h) PO SCH (08:45)
[2022-08-09] MEDS: Azithromycin 250 MG TABLET PO SCH (08:45)
[2022-08-09] MEDS: GALANTAMINE HBR 8 MG PO SCH (08:45)
[2022-08-09] MEDS: Cefdinir 300 MG CAPSULE PO SCH ×2 (08:45→21:58)
[2022-08-09] MEDS: Furosemide 20 MG/2 ML VIAL IVP SCH (09:23)
[2022-08-09] MEDS: Remdesivir 100 MG in 0.9 % Sodium Chloride 100 ML IVPB SCH (12:12)
[2022-08-09] MEDS: Mirtazapine 15 MG TABLET PO SCH (21:58)
[2022-08-09] MEDS: QUEtiapine Fumarate 25 MG TABLET PO SCH (21:58)
[2022-08-10] MEDS: *HR* Enoxaparin 40 MG/0.4 ML SYRINGE SQ SCH (06:24)
[2022-08-10 07:30] LABS: Calcium 9.2 mg/dL (8.6-10.3); Magnesium 2.1 mg/dL (1.6-2.6); Potassium 3.3 mEq/L (3.5-5.1)
[2022-08-10 07:31] LABS: Albumin 3.5 g/dL (3.5-5.7); Bilirubin,Direct 0.1 mg/dL (0.0-0.2); Bilirubin,Indirect 0.2 mg/dL (0.0-1.0); Bilirubin,Total 0.3 mg/dL (0.3-1.0); Globulin 3.5 g/dL (2.4-3.5)
[2022-08-10 08:12] LABS: Basophils % 0.1 %; Hemoglobin 14.5 g/dL (11.5-15.4); Immature Granulocytes % 0.4 % (0-4); Lymphocytes # 0.7 K/mcL (0.6-4.6); Mean Corpuscular HGB Conc 33.7 g/dL (31.6-35.5); Mean Corpuscular Hemoglobin 27.5 pg (28.0-33.3); Mean Corpuscular Volume 81.4 fL (83.0-100.0); Mean Platelet Volume 9.1 fL (9.4-12.4); Monocytes # 0.7 K/mcL (0.0-1.3); Neutrophils # 12.8 K/mcL (1.6-8.9); Platelet Count 444 K/mcL (140-400); Red Blood Count 5.28 M/mcL (3.82-4.97); Red Cell Distribution Width 13.1 % (11.5-14.5); Segmented Neutrophils % 89.5 %; White Blood Count 14.3 K/mcL (4.3-11.1)
[2022-08-10] MEDS: Cefdinir 300 MG CAPSULE PO SCH (09:05)
[2022-08-10] MEDS: dexAMETHasone 4 MG TABLET PO SCH (09:06)
[2022-08-10] MEDS: Cyanocobalamin (B-12) 1,000 MCG TABLET PO SCH (09:06)
[2022-08-10] MEDS: Multivit/Ca/Min/Fe/FA 1 TAB TABLET PO SCH (09:08)
[2022-08-10] MEDS: lisinopriL 20 MG TABLET PO SCH (09:08)
[2022-08-10] MEDS: Cholecalciferol (D-3) 1,000 UNIT (25MCG) TABLET PO SCH (09:08)
[2022-08-10] MEDS: GALANTAMINE HBR 8 MG PO SCH (09:09)
[2022-08-10] MEDS: Megestrol Acetate 400 MG/10 ML UDC PO SCH (09:09)
[2022-08-10] MEDS: (Mirabegron [Myrbetriq] 25 MG Tab.Er.24h) PO SCH (09:09)
[2022-08-10] MEDS: Furosemide 20 MG/2 ML VIAL IVP SCH (09:09)
[2022-08-10] MEDS: Budesonide/Formoterol 160/4.5 1 PUFF INH IH SCH ×2 (09:49→21:26)
[2022-08-10] MEDS: Remdesivir 100 MG in 0.9 % Sodium Chloride 100 ML IVPB SCH (12:11)
[2022-08-10] MEDS ORDERED: Potassium Chloride Elixir 20 MEQ/15 ML UDC PO ONE (14:04)
[2022-08-10] MEDS: Mirtazapine 15 MG TABLET PO SCH (21:51)
[2022-08-10] MEDS: QUEtiapine Fumarate 25 MG TABLET PO SCH (21:51)
[2022-08-11] MEDS: *HR* Enoxaparin 40 MG/0.4 ML SYRINGE SQ SCH (06:42)
[2022-08-11 07:49] LABS: Basophils % 0.1 %; Hematocrit 38.9 % (35.3-44.9); Hemoglobin 12.8 g/dL (11.5-15.4); Immature Granulocytes % 0.5 % (0-4); Lymphocytes # 1.1 K/mcL (0.6-4.6); Lymphocytes % 8.5 %; Mean Corpuscular HGB Conc 32.9 g/dL (31.6-35.5); Mean Corpuscular Hemoglobin 27.6 pg (28.0-33.3); Mean Corpuscular Volume 83.8 fL (83.0-100.0); Mean Platelet Volume 8.6 fL (9.4-12.4); Monocytes # 1.1 K/mcL (0.0-1.3); Monocytes % 8.5 %; Neutrophils # 10.9 K/mcL (1.6-8.9); Platelet Count 465 K/mcL (140-400); Red Blood Count 4.64 M/mcL (3.82-4.97); Red Cell Distribution Width 13.3 % (11.5-14.5); Segmented Neutrophils % 82.4 %; White Blood Count 13.2 K/mcL (4.3-11.1)
[2022-08-11] MEDS: Budesonide/Formoterol 160/4.5 1 PUFF INH IH SCH ×2 (08:07→22:44)
[2022-08-11 08:15] LABS: Albumin 3.3 g/dL (3.5-5.7); Bilirubin,Direct 0.1 mg/dL (0.0-0.2); Bilirubin,Indirect 0.3 mg/dL (0.0-1.0); Bilirubin,Total 0.4 mg/dL (0.3-1.0); Globulin 3.3 g/dL (2.4-3.5); Total Protein 6.6 g/dL (6.4-8.9)
[2022-08-11] MEDS ORDERED: 0.9 % Sodium Chloride 1,000 ML IVC SCH (08:15)
[2022-08-11 08:21] LABS: Calcium 9.1 mg/dL (8.6-10.3); Magnesium 2.1 mg/dL (1.6-2.6); Potassium 4.5 mEq/L (3.5-5.1)
[2022-08-11] MEDS ORDERED: Furosemide 20 MG TABLET PO SCH (09:00)
[2022-08-11] MEDS: lisinopriL 20 MG TABLET PO SCH (09:37)
[2022-08-11] MEDS: dexAMETHasone 4 MG TABLET PO SCH (09:37)
[2022-08-11] MEDS: Cyanocobalamin (B-12) 1,000 MCG TABLET PO SCH (09:37)
[2022-08-11] MEDS: Multivit/Ca/Min/Fe/FA 1 TAB TABLET PO SCH (09:38)
[2022-08-11] MEDS: (Mirabegron [Myrbetriq] 25 MG Tab.Er.24h) PO SCH (09:38)
[2022-08-11] MEDS: Remdesivir 100 MG in 0.9 % Sodium Chloride 100 ML IVPB SCH (09:38)
[2022-08-11] MEDS: GALANTAMINE HBR 8 MG PO SCH (09:38)
[2022-08-11] MEDS: Cholecalciferol (D-3) 1,000 UNIT (25MCG) TABLET PO SCH (09:38)
[2022-08-11] MEDS: Megestrol Acetate 400 MG/10 ML UDC PO SCH (09:45)
[2022-08-11] MEDS: Mirtazapine 15 MG TABLET PO SCH (19:52)
[2022-08-11] MEDS: QUEtiapine Fumarate 25 MG TABLET PO SCH (19:52)
[2022-08-12] MEDS: *HR* Enoxaparin 40 MG/0.4 ML SYRINGE SQ SCH (05:52)
[2022-08-12 08:06] LABS: Albumin 3.3 g/dL (3.5-5.7); Bilirubin,Direct 0.1 mg/dL (0.0-0.2); Bilirubin,Indirect 0.4 mg/dL (0.0-1.0); Bilirubin,Total 0.5 mg/dL (0.3-1.0); Globulin 3.2 g/dL (2.4-3.5); Total Protein 6.5 g/dL (6.4-8.9)
[2022-08-12] MEDS: Budesonide/Formoterol 160/4.5 1 PUFF INH IH SCH ×2 (09:00→21:52)
[2022-08-12] MEDS: lisinopriL 20 MG TABLET PO SCH (09:13)
[2022-08-12] MEDS: Multivit/Ca/Min/Fe/FA 1 TAB TABLET PO SCH (09:13)
[2022-08-12] MEDS: GALANTAMINE HBR 8 MG PO SCH (09:13)
[2022-08-12] MEDS: Cholecalciferol (D-3) 1,000 UNIT (25MCG) TABLET PO SCH (09:13)
[2022-08-12] MEDS: Megestrol Acetate 400 MG/10 ML UDC PO SCH (09:13)
[2022-08-12] MEDS: Cyanocobalamin (B-12) 1,000 MCG TABLET PO SCH (09:13)
[2022-08-12] MEDS: (Mirabegron [Myrbetriq] 25 MG Tab.Er.24h) PO SCH (09:13)
[2022-08-12] MEDS: Mirtazapine 15 MG TABLET PO SCH (19:59)
[2022-08-12] MEDS: QUEtiapine Fumarate 25 MG TABLET PO SCH ×2 (20:00→21:27)
[2022-08-13] MEDS: *HR* Enoxaparin 40 MG/0.4 ML SYRINGE SQ SCH (04:59)
[2022-08-13 05:07] VITALS: TEMP 97.7
[2022-08-13 07:38] VITALS: BP 105/61; PULSE 85; RESP 18; O2SAT 18
[2022-08-13] MEDS: Budesonide/Formoterol 160/4.5 1 PUFF INH IH SCH (09:14)
[2022-08-13] MEDS: lisinopriL 20 MG TABLET PO SCH (09:52)
[2022-08-13] MEDS: Cholecalciferol (D-3) 1,000 UNIT (25MCG) TABLET PO SCH (09:52)
[2022-08-13] MEDS: Cyanocobalamin (B-12) 1,000 MCG TABLET PO SCH (09:52)
[2022-08-13] MEDS: Multivit/Ca/Min/Fe/FA 1 TAB TABLET PO SCH (09:52)
[2022-08-13] MEDS: GALANTAMINE HBR 8 MG PO SCH (09:53)
[2022-08-13] MEDS: (Mirabegron [Myrbetriq] 25 MG Tab.Er.24h) PO SCH (09:53)
[2022-08-13] MEDS: Megestrol Acetate 400 MG/10 ML UDC PO SCH (09:54)
[2022-08-13] MEDS ORDERED: Thiamine (B-1) 100 MG, Folic Acid 1 MG, MVI, adult with vitamin K 10 ML in 0.9 % Sodi... IVPB SCH ×2 (15:00→18:00)
== END 2022-08-13 17:35 | disposition other institution (70) | DRG 178 ==
LOC: INPPIK 14:10 → EMEROOPIK 14:10 → INPPIK 17:26 → SUATTDRO 08-07 17:55
PROVIDERS: ADMIT Internal Medicine; ATTEND Nurse Practitioner

== ENCOUNTER 2022-08-13 15:38 | Inpatient (IN) ==
[2022-08-13] MEDS ORDERED: QUEtiapine Fumarate 25 MG TABLET PO SCH (21:00)
[2022-08-13] MEDS: Budesonide/Formoterol 160/4.5 1 PUFF INH IH SCH (21:32)
[2022-08-13] MEDS: Mirtazapine 15 MG TABLET PO SCH (21:51)
[2022-08-14 07:37] LABS: Basophils % 0.2 %; Eosinophils # 0.2 K/mcL (0.0-0.6); Eosinophils % 1.3 %; Hematocrit 39.7 % (35.3-44.9); Hemoglobin 12.9 g/dL (11.5-15.4); Immature Granulocytes % 1.7 % (0-4); Lymphocytes # 1.9 K/mcL (0.6-4.6); Mean Corpuscular HGB Conc 32.5 g/dL (31.6-35.5); Mean Corpuscular Hemoglobin 27.7 pg (28.0-33.3); Mean Corpuscular Volume 85.4 fL (83.0-100.0); Mean Platelet Volume 8.5 fL (9.4-12.4); Monocytes # 1.2 K/mcL (0.0-1.3); Monocytes % 9.1 %; Neutrophils # 9.8 K/mcL (1.6-8.9); Platelet Count 462 K/mcL (140-400); Red Blood Count 4.65 M/mcL (3.82-4.97); Red Cell Distribution Width 13.9 % (11.5-14.5); Segmented Neutrophils % 73.7 %; White Blood Count 13.3 K/mcL (4.3-11.1)
[2022-08-14 08:09] LABS: Calcium 8.6 mg/dL (8.6-10.3)
[2022-08-14] MEDS: Budesonide/Formoterol 160/4.5 1 PUFF INH IH SCH ×2 (10:17→21:39)
[2022-08-14] MEDS: (Mirabegron [Myrbetriq] 25 MG Tab.Er.24h) PO SCH (10:23)
[2022-08-14] MEDS: GALANTAMINE HBR 8 MG PO SCH (10:23)
[2022-08-14] MEDS: lisinopriL 20 MG TABLET PO SCH (10:27)
[2022-08-14] MEDS: Cholecalciferol (D-3) 1,000 UNIT (25MCG) TABLET PO SCH (10:27)
[2022-08-14] MEDS: Cyanocobalamin (B-12) 1,000 MCG TABLET PO SCH (10:27)
[2022-08-14] MEDS: Multivit/Ca/Min/Fe/FA 1 TAB TABLET PO SCH (10:28)
[2022-08-14] MEDS: Acetaminophen 325 MG TABLET PO PRN (18:08)
[2022-08-14] MEDS: Mirtazapine 15 MG TABLET PO SCH (22:44)
[2022-08-14] MEDS: QUEtiapine Fumarate 25 MG TABLET PO SCH (22:44)
[2022-08-15] MEDS: *HR* Enoxaparin 40 MG/0.4 ML SYRINGE SQ SCH (07:11)
[2022-08-15] MEDS: GALANTAMINE HBR 8 MG PO SCH (09:33)
[2022-08-15] MEDS: (Mirabegron [Myrbetriq] 25 MG Tab.Er.24h) PO SCH (09:33)
[2022-08-15] MEDS: Multivit/Ca/Min/Fe/FA 1 TAB TABLET PO SCH (09:35)
[2022-08-15] MEDS: Cholecalciferol (D-3) 1,000 UNIT (25MCG) TABLET PO SCH (09:35)
[2022-08-15] MEDS: lisinopriL 20 MG TABLET PO SCH (09:35)
[2022-08-15] MEDS: Cyanocobalamin (B-12) 1,000 MCG TABLET PO SCH (09:36)
[2022-08-15] MEDS: Budesonide/Formoterol 160/4.5 1 PUFF INH IH SCH ×2 (09:45→22:44)
[2022-08-15] MEDS ORDERED: Bisacodyl 10 MG RECTAL SUPPOSITORY RC PRN (13:25)
[2022-08-15] MEDS: QUEtiapine Fumarate 25 MG TABLET PO SCH (21:12)
[2022-08-15] MEDS: Acetaminophen 325 MG TABLET PO PRN (21:12)
[2022-08-15] MEDS: Mirtazapine 15 MG TABLET PO SCH (21:12)
[2022-08-16] MEDS: *HR* Enoxaparin 40 MG/0.4 ML SYRINGE SQ SCH (05:20)
[2022-08-16] MEDS: Budesonide/Formoterol 160/4.5 1 PUFF INH IH SCH ×2 (09:09→21:23)
[2022-08-16] MEDS: Multivit/Ca/Min/Fe/FA 1 TAB TABLET PO SCH (09:16)
[2022-08-16] MEDS: Cholecalciferol (D-3) 1,000 UNIT (25MCG) TABLET PO SCH (09:16)
[2022-08-16] MEDS: GALANTAMINE HBR 8 MG PO SCH (09:16)
[2022-08-16] MEDS: Cyanocobalamin (B-12) 1,000 MCG TABLET PO SCH (09:16)
[2022-08-16] MEDS: lisinopriL 20 MG TABLET PO SCH (09:16)
[2022-08-16] MEDS: (Mirabegron [Myrbetriq] 25 MG Tab.Er.24h) PO SCH (09:17)
[2022-08-16] MEDS ORDERED: 0.9 % Sodium Chloride 500 ML IVC ONE (20:08)
[2022-08-16] MEDS: Mirtazapine 15 MG TABLET PO SCH (20:38)
[2022-08-16] MEDS: QUEtiapine Fumarate 25 MG TABLET PO SCH (20:38)
[2022-08-17] MEDS: *HR* Enoxaparin 40 MG/0.4 ML SYRINGE SQ SCH (06:14)
[2022-08-17] MEDS: Cyanocobalamin (B-12) 1,000 MCG TABLET PO SCH (09:09)
[2022-08-17] MEDS: Multivit/Ca/Min/Fe/FA 1 TAB TABLET PO SCH (09:09)
[2022-08-17] MEDS: Cholecalciferol (D-3) 1,000 UNIT (25MCG) TABLET PO SCH (09:09)
[2022-08-17] MEDS: (Mirabegron [Myrbetriq] 25 MG Tab.Er.24h) PO SCH (09:10)
[2022-08-17] MEDS: GALANTAMINE HBR 8 MG PO SCH (09:10)
[2022-08-17] MEDS: Budesonide/Formoterol 160/4.5 1 PUFF INH IH SCH ×2 (09:25→23:14)
[2022-08-17] MEDS ORDERED: MOM Conc 10 ML UD.LIQ PO ONE (11:38)
[2022-08-17] MEDS: lisinopriL 20 MG TABLET PO SCH (11:41)
[2022-08-17] MEDS: QUEtiapine Fumarate 25 MG TABLET PO SCH (21:05)
[2022-08-17] MEDS: Mirtazapine 15 MG TABLET PO SCH (21:05)
[2022-08-17] MEDS: Acetaminophen 325 MG TABLET PO PRN (21:06)
[2022-08-18] MEDS: *HR* Enoxaparin 40 MG/0.4 ML SYRINGE SQ SCH (06:19)
[2022-08-18] MEDS: Budesonide/Formoterol 160/4.5 1 PUFF INH IH SCH ×2 (09:13→20:54)
[2022-08-18] MEDS: Multivit/Ca/Min/Fe/FA 1 TAB TABLET PO SCH (09:28)
[2022-08-18] MEDS: GALANTAMINE HBR 8 MG PO SCH (09:29)
[2022-08-18] MEDS: lisinopriL 20 MG TABLET PO SCH (09:29)
[2022-08-18] MEDS: Cyanocobalamin (B-12) 1,000 MCG TABLET PO SCH (09:29)
[2022-08-18] MEDS: (Mirabegron [Myrbetriq] 25 MG Tab.Er.24h) PO SCH (09:29)
[2022-08-18] MEDS: Cholecalciferol (D-3) 1,000 UNIT (25MCG) TABLET PO SCH (09:29)
[2022-08-18] MEDS: QUEtiapine Fumarate 25 MG TABLET PO SCH (21:25)
[2022-08-18] MEDS: Acetaminophen 325 MG TABLET PO PRN (21:26)
[2022-08-18] MEDS: Mirtazapine 15 MG TABLET PO SCH (21:26)
[2022-08-19] MEDS: *HR* Enoxaparin 40 MG/0.4 ML SYRINGE SQ SCH (06:55)
[2022-08-19] MEDS: GALANTAMINE HBR 8 MG PO SCH (09:01)
[2022-08-19] MEDS: (Mirabegron [Myrbetriq] 25 MG Tab.Er.24h) PO SCH (09:01)
[2022-08-19] MEDS: Multivit/Ca/Min/Fe/FA 1 TAB TABLET PO SCH (09:06)
[2022-08-19] MEDS: lisinopriL 20 MG TABLET PO SCH (09:06)
[2022-08-19] MEDS: Cyanocobalamin (B-12) 1,000 MCG TABLET PO SCH (09:06)
[2022-08-19] MEDS: Cholecalciferol (D-3) 1,000 UNIT (25MCG) TABLET PO SCH (09:06)
[2022-08-19] MEDS: Budesonide/Formoterol 160/4.5 1 PUFF INH IH SCH ×2 (09:30→21:27)
[2022-08-19] MEDS: Mirtazapine 15 MG TABLET PO SCH (20:34)
[2022-08-19] MEDS: QUEtiapine Fumarate 25 MG TABLET PO SCH (20:34)
[2022-08-20] MEDS: *HR* Enoxaparin 40 MG/0.4 ML SYRINGE SQ SCH (05:44)
[2022-08-20 07:08] LABS: Basophils % 0.3 %; Eosinophils # 0.1 K/mcL (0.0-0.6); Eosinophils % 0.9 %; Hematocrit 34.9 % (35.3-44.9); Hemoglobin 11.3 g/dL (11.5-15.4); Immature Granulocytes % 0.4 % (0-4); Lymphocytes # 1.2 K/mcL (0.6-4.6); Lymphocytes % 8.2 %; Mean Corpuscular HGB Conc 32.4 g/dL (31.6-35.5); Mean Corpuscular Hemoglobin 28.3 pg (28.0-33.3); Mean Corpuscular Volume 87.3 fL (83.0-100.0); Mean Platelet Volume 9.1 fL (9.4-12.4); Monocytes # 0.9 K/mcL (0.0-1.3); Monocytes % 6.3 %; Platelet Count 361 K/mcL (140-400); Red Cell Distribution Width 14.2 % (11.5-14.5); Segmented Neutrophils % 83.9 %; White Blood Count 14.3 K/mcL (4.3-11.1)
[2022-08-20] MEDS: Cholecalciferol (D-3) 1,000 UNIT (25MCG) TABLET PO SCH (08:35)
[2022-08-20] MEDS: Multivit/Ca/Min/Fe/FA 1 TAB TABLET PO SCH (08:35)
[2022-08-20] MEDS: Cyanocobalamin (B-12) 1,000 MCG TABLET PO SCH (08:35)
[2022-08-20] MEDS: lisinopriL 20 MG TABLET PO SCH (08:35)
[2022-08-20] MEDS: Acetaminophen 325 MG TABLET PO PRN (08:36)
[2022-08-20] MEDS: (Mirabegron [Myrbetriq] 25 MG Tab.Er.24h) PO SCH (08:39)
[2022-08-20] MEDS: GALANTAMINE HBR 8 MG PO SCH (08:39)
[2022-08-20] MEDS: Budesonide/Formoterol 160/4.5 1 PUFF INH IH SCH ×2 (09:07→21:08)
[2022-08-20 09:23] LABS: Calcium 8.3 mg/dL (8.6-10.3); Potassium 4.2 mEq/L (3.5-5.1)
[2022-08-20] MEDS: Mirtazapine 15 MG TABLET PO SCH (19:58)
[2022-08-20] MEDS: QUEtiapine Fumarate 25 MG TABLET PO SCH (19:58)
[2022-08-21] MEDS: *HR* Enoxaparin 40 MG/0.4 ML SYRINGE SQ SCH (05:50)
[2022-08-21] MEDS: Budesonide/Formoterol 160/4.5 1 PUFF INH IH SCH ×2 (09:17→21:42)
[2022-08-21] MEDS: Multivit/Ca/Min/Fe/FA 1 TAB TABLET PO SCH (09:22)
[2022-08-21] MEDS: Cholecalciferol (D-3) 1,000 UNIT (25MCG) TABLET PO SCH (09:23)
[2022-08-21] MEDS: GALANTAMINE HBR 8 MG PO SCH (09:23)
[2022-08-21] MEDS: Cyanocobalamin (B-12) 1,000 MCG TABLET PO SCH (09:23)
[2022-08-21] MEDS: lisinopriL 20 MG TABLET PO SCH (09:23)
[2022-08-21] MEDS: (Mirabegron [Myrbetriq] 25 MG Tab.Er.24h) PO SCH (09:24)
[2022-08-21] MEDS: QUEtiapine Fumarate 25 MG TABLET PO SCH (21:03)
[2022-08-21] MEDS: Acetaminophen 325 MG TABLET PO PRN (21:03)
[2022-08-21] MEDS: Mirtazapine 15 MG TABLET PO SCH (21:03)
[2022-08-22] MEDS: *HR* Enoxaparin 40 MG/0.4 ML SYRINGE SQ SCH (05:25)
[2022-08-22] MEDS: Multivit/Ca/Min/Fe/FA 1 TAB TABLET PO SCH (09:35)
[2022-08-22] MEDS: lisinopriL 20 MG TABLET PO SCH (09:35)
[2022-08-22] MEDS: Cholecalciferol (D-3) 1,000 UNIT (25MCG) TABLET PO SCH (09:36)
[2022-08-22] MEDS: (Mirabegron [Myrbetriq] 25 MG Tab.Er.24h) PO SCH (09:36)
[2022-08-22] MEDS: GALANTAMINE HBR 8 MG PO SCH (09:36)
[2022-08-22] MEDS: Cyanocobalamin (B-12) 1,000 MCG TABLET PO SCH (09:36)
[2022-08-22] MEDS: Budesonide/Formoterol 160/4.5 1 PUFF INH IH SCH ×2 (09:53→21:50)
[2022-08-22] MEDS: QUEtiapine Fumarate 25 MG TABLET PO SCH (21:23)
[2022-08-22] MEDS: Mirtazapine 15 MG TABLET PO SCH (21:23)
[2022-08-23] MEDS: *HR* Enoxaparin 40 MG/0.4 ML SYRINGE SQ SCH (05:47)
[2022-08-23] MEDS: Cyanocobalamin (B-12) 1,000 MCG TABLET PO SCH (09:21)
[2022-08-23] MEDS: GALANTAMINE HBR 8 MG PO SCH (09:21)
[2022-08-23] MEDS: Cholecalciferol (D-3) 1,000 UNIT (25MCG) TABLET PO SCH (09:21)
[2022-08-23] MEDS: (Mirabegron [Myrbetriq] 25 MG Tab.Er.24h) PO SCH (09:21)
[2022-08-23] MEDS: Multivit/Ca/Min/Fe/FA 1 TAB TABLET PO SCH (09:21)
[2022-08-23] MEDS: lisinopriL 20 MG TABLET PO SCH (09:21)
[2022-08-23] MEDS: Budesonide/Formoterol 160/4.5 1 PUFF INH IH SCH ×2 (09:22→21:36)
[2022-08-23] MEDS: Mirtazapine 15 MG TABLET PO SCH (21:06)
[2022-08-23] MEDS: QUEtiapine Fumarate 25 MG TABLET PO SCH (21:06)
[2022-08-24] MEDS: *HR* Enoxaparin 40 MG/0.4 ML SYRINGE SQ SCH (05:57)
[2022-08-24 07:46] VITALS: BP 136/74; PULSE 74; RESP 18; TEMP 97.6
[2022-08-24] MEDS: GALANTAMINE HBR 8 MG PO SCH (07:55)
[2022-08-24] MEDS: (Mirabegron [Myrbetriq] 25 MG Tab.Er.24h) PO SCH (07:55)
[2022-08-24] MEDS: Budesonide/Formoterol 160/4.5 1 PUFF INH IH SCH (09:04)
[2022-08-24 09:08] VITALS: O2SAT 98
[2022-08-24] MEDS: Multivit/Ca/Min/Fe/FA 1 TAB TABLET PO SCH (09:17)
[2022-08-24] MEDS: lisinopriL 20 MG TABLET PO SCH (09:17)
[2022-08-24] MEDS: Cyanocobalamin (B-12) 1,000 MCG TABLET PO SCH (09:18)
[2022-08-24] MEDS: Cholecalciferol (D-3) 1,000 UNIT (25MCG) TABLET PO SCH (09:18)
[2022-08-24] MEDS: Acetaminophen 325 MG TABLET PO PRN (09:19)
[2022-08-24] MEDS ORDERED: Fluconazole 100 MG TABLET PO SCH (14:15)
== END 2022-08-24 14:55 | disposition home health service (06) | DRG 177 ==
LOC: INPPIK 18:50
PROVIDERS: ADMIT Family Medicine; ATTEND Family Medicine